=== PATIENT | female | born 1975 | race Two or more races ===

== ENCOUNTER 2025-08-11 17:16 | Emergency (ER) | payer OTHER, SELFPAY ==
[2025-08-11 17:20] VITALS: BP 111/82
[2025-08-11] MEDS: FLEXERIL 10 MG PO (23:30)
[2025-08-11] MEDS: TORADOL 30 MG IM (23:30)
[2025-08-12 00:08] VITALS: BP 111/72
--- NOTE | 2025-08-12 00:09 | ED.GENMED ---
History of Present Illness
General
Chief Complaint: Back Pain
Source: patient
Exam Limitations: none
Time Seen by Provider: 08/11/25 23:04
Nursing documentation reviewed up to this point in time: agreed with
History of Present Illness
History of Present Illness:
50-year-old female with a past medical history of hyperlipidemia, brain tumor , present presents the year today with concern concerns of back pain. this started 3 to 4 days ago. She reports that she does not recall an inciting injury. She feels the
pain in the right lower back and it radiates into the right leg and buttocks. It does not go down to the feet. She denies any weakness. She denies any trouble walking. Reports of the pain is worse during the nighttime . She took Tylenol which did
not help with her symptoms. She has never had pain like this before. She denies any numbness or tingling sensation. She denies any falls. She reports that she recently has been moving houses and moving boxes with the move, and reports that she has
done a lot of lifting recently. She denies any abdominal pain with this period denies any chest pain. She denies any general parastasis, urinary or fecal incontinence. Denies urinary frequency. She has sudden onset nstipation. She's not had any
fevers . Patient reports that she's a medical of a brain tumor but that was treated and she reports that the tumor ancerous and she follows with imaging. Currently, patient does not follow with an orthopedist.
Review of Systems
Review of Systems
All Other Systems: ROS reviewed and negative except as documented in HPI and ROS
Phy Exam
Physical Exam
Physical Exam:
General: Patient is well appearing and in no acute distress; non-toxic
Skin: Warm and dry, no rashes or lesions
Head: Normocephalic, atraumatic
Eyes: Sclera non-icteric. EOMs intact.
Cardiac: Regular rate
Peripheral Vascular: 2+ DP pulses
Pulm: Normal respiratory effort
Abdomen: No abdominal tenderness
Musculoskeletal: No midline spinal tenderness 5/5 strength in bilateral LE.
Neuro: CN II-XII intact, no focal neurologic deficits. Sensation intact.
Psychiatric: Appropriate mood and affect.
Course
Orders/Labs/Results
Orders:
Orders
08/11/25 23:15
Cyclobenzaprine HCl [Flexeril] 10 mg PO NOW STA
Ketorolac [Toradol] 30 mg IM NOW STA
CR Lumbar Spine 2 Or 3 Views Urgent
Comment:
Reason For Exam: back pain
Vital Signs
Initial and Last Documented VS:
Initial Vital Signs
Temp Pulse Resp BP Pulse Ox
97.8 F 78 16 111/82 99
08/11/25 17:20 08/11/25 17:20 08/11/25 17:20 08/11/25 17:20 08/11/25 17:20
Last Documented Vital Signs
Temp Pulse Resp BP Pulse Ox
97.8 F 64 18 111/72 98
08/11/25 17:20 08/12/25 00:08 08/12/25 00:08 08/12/25 00:08 08/12/25 00:09
MDM/Problems Addressed
Differential Diagnosis Includes:
ddx include osteoarthritis, spinal stenosis, bony mass, HNP, DJD
MDM/Problems Addressed:
50-year-old female presents to the er today with concerns of back pain. She's never had pain similar to this before. On physical exam, she's well appearing and no acute distress. She has no midline spinal tenderness. She does have some tenderness
in the para lumbar musculature. She is no objective weakness on exam and has 505 strength. She is a normal gait. Suspect herniated disc versus spinal stenosis. Will initiate steroid course. Pain improvement with Toradol injection. X-ray does show
some evidence of degenerative disease disease at L5 to S1. s follow up with orthopedics.
Chronic conditions affecting care:
HLP
*Pulse Oximetry
SaO2: 98
Oxygen Mode of Delivery: Room air
Patient hypoxic: no
*Critical Care Note
Total Time (30-74mins, 75-104mins- exclusive of procedures): Not Applicable
Data Reviewed
Review of Other/Old Records Reveals: Records (no prior records in [facility] for review)
Source: patient and records
ED Attending Note
-
Portions of this chart may have been created with voice recognition software.� Occasional wrong word or��sound alike� substitutions may have occurred due to the inherent limitations of voice recognition software.
Discharge Plan
Departure
Patient Disposition: Home (Routine Discharge)
Date of Disposition: 08/12/25
Time of Disposition: 00:06
Patient with high blood pressure during this ER visit?: Yes
Condition: Good
Discharge Problem:
Back pain
Instructions: Radiculopathy (DC), Low back pain (DC)
Prescriptions:
New
prednisone 20 mg tablet
40 mg PO DAILY 5 Days Qty: 10 0RF
Referrals:
Connor Selby, [Family Provider, Family Practice]
Steven Henley MD [Active, Orthopedics] - Call in 1-3 days for appt
Activity Restrictions/Additional Instructions:
Prednisone has been sent to your pharmacy. Please take 40 mg once daily for 5 days.
Please follow up with your primary care provider. Please do not take NSAIDs while taking the steroid.
PLEASE RETURN TO THE ER SHOULD YOU DEVELOP ABDOMINAL PAIN, CHEST PAIN, SHORTNESS OF BREATH, FAINTING SPELLS, LOSS OF BOWEL OR BLADDER CONTROL, FEVERS, INABILITY TO AMBULATE, OR ANY OTHER SIGNS OR SYMPTOMS WORRISOME TO YOU.
Interventions
Interventions:
*General Assessment Last Done: 08/11/25 17:23
*Neglect/Abuse Screening Last Done: 08/11/25 22:13
*ED COVID-19 Vaccine History Last Done: 08/11/25 22:13
*ED Influenza Vaccine History Last Done: 08/11/25 22:13
[facility] Fall Risk Assessment Tool Last Done: 08/11/25 22:09
*Risk Screen - Suicide (C-SSRS) Last Done: 08/11/25 17:23
*Nursing Disposition Last Done: 08/12/25 00:15
ED-Musculoskeletal Assessment Last Done: 08/11/25 22:13
Discharge Date and Time
Discharge Date/Time: 08/12/25 00:18
Print Language: BULGARIAN
== END 2025-08-12 00:18 | disposition home or self-care (01) ==
LOC: EMR 17:16
PROVIDERS: EMERGENCY PHYSICIAN Student in an Organized Health Care Education/Training Program; FAMILY PHYSICIAN Family Medicine
DX: M54.9 Dorsalgia, unspecified (principal); E78.00 Pure hypercholesterolemia, unspecified; D49.6 Neoplasm of unspecified behavior of brain
CPT/HCPCS: 99283; 96372; 72100